=== PATIENT | female | born 1970 | race Caucasian/White ===

== ENCOUNTER 2020-05-15 12:41 | Outpatient (CLI) | payer MEDICAID ==
--- NOTE | 2020-05-15 16:00 | Consultation ---
DATE OF CONSULTATION: 05/15/2020 CONSULTING PHYSICIAN: Jan Diaz MD. CHIEF COMPLAINT: Chronic GERD, chronic nausea, referral for endoscopy. PAST MEDICAL HISTORY: 1. Diverticulosis. 2. Hemorrhoids. 3. IBS. 4. Gallbladder nodule/polyp. 5. History of migraine headaches. MEDICATIONS: Please see medication reconciliation list. ALLERGIES: No known drug allergies. FAMILY HISTORY: Mother had breast cancer and colon cancer. SOCIAL HISTORY: The patient denies any tobacco, alcohol, or drug abuse. REVIEW OF SYSTEMS: Positive for chronic nausea for probably a year. PHYSICAL EXAMINATION: VITAL SIGNS: Temperature, afebrile. Vital signs stable. HEENT: Normocephalic and atraumatic. Sclerae are anicteric. NECK: Supple. No evidence of obvious lymphadenopathy. CARDIOVASCULAR: Regular rate and rhythm. Plus S1 and S2. LUNGS: Clear to auscultation bilaterally. ABDOMEN: Positive bowel sounds. Soft and nontender. No rebound. No guarding. No peritoneal sign. EXTREMITIES: No cyanosis. No clubbing. No edema. ASSESSMENT AND PLAN: This is a 49-year-old female with chronic nausea. The patient was referred from the surgery to have an endoscopy done prior to the laparoscopic cholecystectomy. The patient was informed of the risks and benefits of procedure. We will plan to do endoscopy when authorization is obtained. Jan Diaz M.D. DR: KIMBERLY JOB#: [id number] CC:
== END 2020-05-15 14:41 | disposition home or self-care (01) ==
LOC: PAN 12:41
DX: K21.9 Gastro-esophageal reflux disease without esophagitis (principal); R11.0 Nausea; K57.90 Diverticulosis of intestine, part unspecified, without perforation or abscess without bleeding; K58.9 Irritable bowel syndrome, unspecified; Z80.3 Family history of malignant neoplasm of breast; Z80.0 Family history of malignant neoplasm of digestive organs
CPT/HCPCS: G0463